=== PATIENT | female | born 1980 | race Caucasian/White ===

== ENCOUNTER 2017-07-21 08:17 | Emergency (ER) | END 2017-07-21 12:25 | disposition home or self-care (01) ==

== ENCOUNTER 2017-07-24 08:03 | Emergency (ER) | END 2017-07-24 08:28 | disposition home or self-care (01) ==

== ENCOUNTER 2017-07-27 10:10 | Emergency (ER) | END 2017-07-27 12:50 | disposition home or self-care (01) ==

== ENCOUNTER 2018-05-23 18:02 | Emergency (ER) | END 2018-05-23 21:07 | disposition home or self-care (01) ==